=== PATIENT | male | born 1990 | race Hispanic/Latino ===

== ENCOUNTER 2019-07-17 20:50 | Inpatient (IN) | payer BC, MEDICAID ==
--- OUTSIDE RECORDS SUMMARY | 2019-07-17 20:52 | XMS REPORT | Summary of Care ---
:1990 Author Organization [facility] [place] [address] Care Team Providers Name Role Phone Raghav Ambrocio MD Unavailable Kevin Reyes MD Primary Care Provider Reason for Visit Reason Comments Post-op Follow-up Encounter Details Date Type Department Care Team Description 03/02/2019 Office Visit [facility] Fany Lange V, Post-op Follow- up Neurosurgery RF TECHNICIAN [address] [facility] 9th Floor, [address] 9th [address] [place] [address] [place], [place] [id number] Allergies Active Allergy Reactions Severity Noted Date Mannie Landers 03/17/2012 documented as of this encounter (statuses as of 03/02/2019) Medications Medication Sig Dispensed Refills Start Date End Date Status Sumatriptan-Naproxe Take by 0 Active n Sodium (TREXIMET) mouth. 85-500 MG TABS phenytoin TAKE 2 3 08/22/2016 Active (DILANTIN) 100 MG CAPSULES BY ER capsule MOUTH EVERY MORNING AND 3 CAPSULES EVERY EVENING levetiracetam Take 250 mg by 0 Active (KEPPRA) 250 MG mouth two tablet times daily. OXcarbazepine Take by 0 03/02/2019 Discontinued (TRILEPTAL OR) mouth. Reported on 09/10/2016 Ezogabine (POTIGA Take by 0 03/02/2019 Discontinued OR) mouth. Reported on 09/10/2016 DULoxetine HCl Take by 0 03/02/2019 Discontinued (CYMBALTA OR) mouth. Reported on 09/10/2016 hydrocodone-acetami Take 1 Tab by 0 03/02/2019 Discontinued nophen (NORCO) mouth every 4 5-325 mg tablet hours as needed. Reported on 09/10/2016 Tobramycin-Dexameth Apply to eye. 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 documented as of this encounter Last Filed Vital Signs Vital Sign Reading Time Taken Comments Blood Pressure 105/74 03/02/2019 2:10 PM CDT Pulse 67 03/02/2019 2:10 PM CDT Temperature - - Respiratory Rate 20 03/02/2019 2:10 PM CDT Oxygen Saturation - - Inhaled Oxygen Concentration - - Weight 84.4 kg (186 lb) 03/02/2019 2:10 PM CDT Height 167.6 cm (5' 6") 03/02/2019 2:10 PM CDT Body Mass Index 30.02 03/02/2019 2:10 PM CDT documented in this encounter Patient Instructions Patient InstructionsSeFany juan NP - 03/02/2019 2:00 PM CDTKeep wound clean and dry and call us for any concerns. documented in this encounter Progress Notes Fany Lange NP - 03/02/2019 2:00 PM CDT REASON FOR VISIT: Post operative visit. We had the pleasure of seeing Mr. Zazueta at the neurosurgery clinic. The patient is a 29 y.o. malewho underwent revision of the vagus nerve stimulator, replacement of pulse generator on 02/15/2019. Patient is recovering very nicely. His wound is healing nicely. CURRENT MEDICATIONS: Current Outpatient Medications Medication Sig Dispense Refill levetiracetam (KEPPRA) 250 MG tablet Take 250 mg by mouth two times daily. phenytoin (DILANTIN) 100 MG ER capsule TAKE 2 CAPSULES BY MOUTH EVERY MORNING AND 3 CAPSULES EVERY EVENING 3 Sumatriptan-Naproxen Sodium (TREXIMET) 85-500 MG TABS Take by mouth. No current facility-administered medications for this visit. PHYSICAL EXAM: Vitals: 03/02/19 1410 BP: 105/74 BP Location: right arm Patient Position: Sitting Cuff Size: large Pulse: 67 Resp: 20 Weight: 186 lb (84.4 kg) Height: 5' 6" (1.676 m) Patient is oriented to person, place and time. CN 2-12 are grossly intact bilaterally. MOTOR EXAM: UE Power Deltoids Triceps Biceps Supinator Pronator Wrist Extensor Wrist Flexor Right 5/5 5/5 5/5 5/5 5/5 5/5 5/5 Left 5/5 5/5 5/5 5/5 5/5 5/5 5/5 LE Power Hip Flexors Quadriceps Hamstrings Dorsiflexors Plantar Flexors EHL Right 5/5 5/5 5/5 5/5 5/5 5/5 Left 5/5 5/5 5/5 5/5 5/5 5/5 Sensory exam : Intact DTR: 2+ throughout. Gait: Steady. Incision: Healing nicely. No signs of infection noted. DIAGNOSIS: Encounter Diagnosis and Orders ICD-10-CM 1. 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 Abundio Zazueta is recovering nicely from the surgery. His incision site was cleaned, no signs of infection noted. Patient was advised to follow up with his neurologist, Dr. Ambrocio. Patient was asked to contact us if he has any questions or concerns. Follow up with us PRN. 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
--- OUTSIDE RECORDS SUMMARY | 2019-07-17 20:52 | XMS REPORT ---
:1990 Author Organization [facility] Address [address] [place] [address] [address] [place] [address] Care Team Providers Name Role Phone IVAN MARTINEZ Unavailable Unavailable Problems This patient has no known problems. Allergies, Adverse Reactions, Alerts This patient has no known allergies or adverse reactions. Medications This patient has no known medications. Results Test Description Test Time Test Comments Text Results Atomic Results Result Comments TISSUE EXAM 2019-02-27 10:44:00 Surgical Pathology Report Case: [id number] Authorizing Provider: Ivan Martinez MD Collected: 02/15/2019 0929 Ordering Location: [facility] Received: 02/15/2019 1059 SERVICES Pathologist: Migue Lassiter MD Specimen: Explant, Previous Battery NEUROSURGICAL HARDWARE, REMOVAL: - BATTERY (GROSS EXAMINATION ONLY)CG/pl Signing Pathologist Direct Phone Line: [phone] signed by Migue Lassiter MD on 02/27/2019 at 10:44 [id number] and postop diagnosis: non-intractable epilepsy without status epilepticus, unspecified epilepsy type Previous batteryReceived fresh labeled with the patient's name, accession number and "explant" is an Aspire HC battery measuring 5.1 x 5.1 x 0.6 cm. The specimen is inscribed with "model 105/S/N [id number] [employer]. [place], [place]". A gross photograph is taken. No sections are submitted - gross only. CG/pl URINALYSIS W/ MICROSCOPIC 2019-02-11 16:13:00 Test Item Value Reference Range Comments COLOR (BEAKER) (test ioot=814) Light Yellow CLARITY (BEAKER) (test aeof=119) Clear SPECIFIC GRAVITY UA (BEAKER) (test pvot=970) 1.005 1.001-1.035 PH UA (BEAKER) (test ocsi=183) 6.5 5.0-8.0 PROTEIN UA (BEAKER) (test esll=084) Negative Negative GLUCOSE UA (BEAKER) (test hwiv=966) Negative Negative KETONES UA (BEAKER) (test scpj=014) Negative Negative BILIRUBIN UA (BEAKER) (test vhwp=124) Negative Negative BLOOD UA (BEAKER) (test miah=493) Negative Negative NITRITE UA (BEAKER) (test gjco=047) Negative Negative LEUKOCYTE ESTERASE UA (BEAKER) (test hbae=319) Negative Negative UROBILINOGEN UA (BEAKER) (test wnor=840) 0.2 mg/dL 0.2-1.0 RBC UA (BEAKER) (test fetf=734) 0 /HPF WBC UA (BEAKER) (test hrue=048) < /HPF SOURCE(BEAKER) (test tukq=6869) Urine, Clean Catch [id number] 15:41:00 Test Item Value Reference Range Comments PARTIAL THROMBOPLASTIN TIME (BEAKER) (test 34.1 seconds 22.5-36.0 yatz=155) BASIC METABOLIC [id number] 15:40:00 Test Item Value Reference Range Comments SODIUM (BEAKER) (test 138 meq/L 136-145 smhj=394) POTASSIUM (BEAKER) (test 3.7 meq/L 3.5-5.1 wvue=061) CHLORIDE (BEAKER) (test 100 meq/L 98-107 bxyr=196) CO2 (BEAKER) (test 31 meq/L 22-29 swxy=852) BLOOD UREA NITROGEN 8 mg/dL 7-21 (BEAKER) (test enut=635) CREATININE (BEAKER) (test 0.83 mg/dL 0.57-1.25 kmdn=412) GLUCOSE RANDOM (BEAKER) 82 mg/dL 70-105 (test xksz=078) CALCIUM (BEAKER) (test 9.2 mg/dL 8.4-10.2 xsqv=574) EGFR (BEAKER) (test 110 mL/min/1.73 sq m ESTIMATED GFR IS NOT xkaa=2516) ACCURATE CREATININE CLEARANCE IN PREDICTING GLOMERULAR FILTRATION RATE. ESTIMATED GFR IS NOT APPLICABLE FOR DIALYSIS PATIENTS. PROTHROMBIN [id number] 15:40:00 Test Item Value Reference Range Comments PROTIME (BEAKER) (test cnlt=781) 12.5 seconds 11.9-14.2 INR (BEAKER) (test mnvh=867) 1.0 <=5.9 Effective 12/23/2018: PT Reference Range ChangeNew: 11.9-14.2 Previous: 11.7- 14.7RECOMMENDED COUMADIN/WARFARIN INR THERAPY RANGESSTANDARD DOSE: 2.0-3.0 Includes: PROPHYLAXIS for venous thrombosis, systemic embolization; TREATMENT for venous thrombosis and/or pulmonary embolus.HIGH RISK: Target INR is2.5-3.5 for patients wiht mechanical heart valves.CBC W/PLT COUNT & AUTO [id number] 15:25:00 Test Item Value Reference Range Comments WHITE BLOOD CELL COUNT (BEAKER) (test vywd=916) 8.8 K/ L 3.5-10.5 RED BLOOD CELL COUNT (BEAKER) (test sarv=721) 4.86 M/ L 4.63-6.08 HEMOGLOBIN (BEAKER) (test djlp=129) 15.0 GM/DL 13.7-17.5 HEMATOCRIT (BEAKER) (test dcfp=715) 43.2 % 40.1-51.0 MEAN CORPUSCULAR VOLUME (BEAKER) (test qlec=083) 88.9 fL 79.0-92.2 MEAN CORPUSCULAR HEMOGLOBIN (BEAKER) (test 30.9 pg 25.7-32.2 gdyu=025) MEAN CORPUSCULAR HEMOGLOBIN CONC (BEAKER) (test 34.7 GM/DL 32.3-36.5 kbju=313) RED CELL DISTRIBUTION WIDTH (BEAKER) (test 12.3 % 11.6-14.4 rrph=759) PLATELET COUNT (BEAKER) (test popv=087) 268 K/CU MM 150-450 MEAN PLATELET VOLUME (BEAKER) (test ivgi=712) 9.0 fL 9.4-12.4 NUCLEATED RED BLOOD CELLS (BEAKER) (test 0 /100 WBC 0-0 bduk=923) NEUTROPHILS RELATIVE PERCENT (BEAKER) (test 51 % nwsp=891) LYMPHOCYTES RELATIVE PERCENT (BEAKER) (test 39 % ahnx=786) MONOCYTES RELATIVE PERCENT (BEAKER) (test 7 % feim=084) EOSINOPHILS RELATIVE PERCENT (BEAKER) (test 2 % qzxa=628) BASOPHILS RELATIVE PERCENT (BEAKER) (test 1 % rkcx=160) NEUTROPHILS ABSOLUTE COUNT (BEAKER) (test 4.45 K/ L 1.78-5.38 udul=703) LYMPHOCYTES ABSOLUTE COUNT (BEAKER) (test 3.41 K/ L 1.32-3.57 mxdb=756) MONOCYTES ABSOLUTE COUNT (BEAKER) (test 0.65 K/ L 0.30-0.82 kell=887) EOSINOPHILS ABSOLUTE COUNT (BEAKER) (test 0.16 K/ L 0.04-0.54 lhme=051) BASOPHILS ABSOLUTE COUNT (BEAKER) (test 0.06 K/ L 0.01-0.08 gisj=704) IMMATURE GRANULOCYTES-RELATIVE PERCENT (BEAKER) 1 % 0-1 (test klxr=4104) TISSUE [id number] 14:52:00Surgical Pathology Report Case: [id number] Authorizing Provider: Ivan Martinez MD Ordering Provider: Ivan Martinez MD [facility] Collected: 10/31 0959 SERVICES Pathologist: Rangel Mejia MD Received: 10/31/2016 1031 Specimen: Explant, Explant Generator -- model 105 SN: [id number] SENIOR SPECIALIST, SITE NOT SPECIFIED, REMOVAL: - SENIOR SPECIALIST (GROSS DIAGNOSIS) Signing Pathologist Direct Phone Line: [phone] generatorReceived fresh labeled "explant", description "explant generator" is a 5.0 x 5.0 x 0.5 cm metallic medical sociologist. The specimen is for gross identification only. DB/ew
[2019-07-17] MEDS ORDERED: NA CHLORIDE 0.9% 1,000 ML ONE (21:21)
[2019-07-17 21:35] LABS: Basophils % 0.8 % (0-1.3); Hematocrit 46.8 % (39.6-49.0); Lymphocytes % 32.2 % (15.3-44.8); MPV 7.3 fL (7.6-11.3); RBC Red Blood Cell Count 5.12 M/uL (4.33-5.43)
[2019-07-17 21:37] LABS: Protime INR 1.04
[2019-07-17 22:48] LABS: ALT/SGPT 29 U/L (12-78); AST/SGOT 16 U/L (15-37); Albumin 4.6 g/dL (3.4-5.0); Alkaline Phosphatase 155 U/L (45-117); BUN Blood Urea Nitrogen 7 mg/dL (7-18); Bicarbonate 32 mmol/L (21-32); Bilirubin Direct < 0.1 mg/dL (0-0.2); Bilirubin Total 0.2 mg/dL (0.2-1.0); Glucose Level 104 mg/dL (74-106); Magnesium 2.1 mg/dL (1.8-2.4); NT PRO-BNP 12 pg/mL (<125); Phenytoin (Dilantin) Level 50.4 ug/mL (10.0-20.0); Potassium 3.7 mmol/L (3.5-5.1); Protein, Total 7.6 g/dL (6.4-8.2); Sodium Level 138 mmol/L (136-145); Troponin (Emerg Dept Use Only) < 0.02 ng/mL (0.0-0.045)
--- NOTE | 2019-07-17 23:19 | EDPHYS ---
Physician Documentation [facility] Name: Abundio Zazueta Age: 29 yrs Sex: Male : 1990 Arrival Date: 07/17/2019 Time: 20:51 Bed 14 Private MD: ED Physician Jose R Davis HPI: 07/17 22:04 This 29 yrs old Male presents to ER via Ambulatory with complaints of Weakness.jack 22:04 The patient presents to the emergency department with weakness of the difficult jack walking, the patient is off balance. Onset: The symptoms/episode began/occurred 2 week(s) ago. Context: occurred at an unknown location. Associated signs and symptoms: Pertinent positives: dizziness, headache, weakness. Severity of symptoms: At their worst the symptoms were mild moderate in the emergency department the symptoms are unchanged. Patient's baseline: Neuro: alert and fully oriented. Current symptoms: Currently, the patient is not experiencing any symptoms. The patient has experienced similar episodes in the past, a few times. Historical: - Allergies: 20:56 ambien; aj1 - Home Meds: 20:56 Dilantin 100 MG Oral 2 tabs in the morning and 3 tabs at night [Active]; Keppra 500 mg aj1 Oral tab 1 tab 2 times per day [Active]; pantoprazole 40 mg oral TbEC 1 tab once daily [Active]; - PMHx: 20:56 Hypertension; Seizures; aj1 - Immunization history:: Flu vaccine is up to date. - Social history:: Smoking status: Patient uses tobacco products, smokes one-half pack cigarettes per day. - Ebola Screening: : Patient denies travel to an Ebola-affected area in the 21 days before illness onset. - Family history:: not pertinent. ROS: 22:04 Constitutional: Negative for fever, chills, and weight loss, ENT: Negative for injury, jack pain, and discharge, Neck: Negative for injury, pain, and swelling, Cardiovascular: Negative for chest pain, palpitations, and edema, Respiratory: Negative for shortness of breath, cough, wheezing, and pleuritic chest pain, Abdomen/GI: Negative for abdominal pain, nausea, vomiting, diarrhea, and constipation, Back: Negative for injury and pain, : Negative for injury, bleeding, discharge, and swelling, MS/Extremity: Negative for injury and deformity, Skin: Negative for injury, rash, and discoloration, Psych: Negative for depression, anxiety, suicide ideation, homicidal ideation, and hallucinations, Allergy/Immunology: Negative for hives, rash, and allergies, Endocrine: Negative for neck swelling, polydipsia, polyuria, polyphagia, and marked weight changes, Hematologic/Lymphatic: Negative for swollen nodes, abnormal bleeding, and unusual bruising. 22:04 Eyes: Negative for acute changes. 22:04 Neuro: Positive for dizziness, gait disturbance, weakness. Exam: 22:04 Constitutional: This is a well developed, well nourished patient who is awake, alert, jack and in no acute distress. Head/Face: Normocephalic, atraumatic. Eyes: Pupils equal round and reactive to light, extra-ocular motions intact. Lids and lashes normal. Conjunctiva and sclera are non-icteric and not injected. Cornea within normal limits. Periorbital areas with no swelling, redness, or edema. ENT: Nares patent. No nasal discharge, no septal abnormalities noted. Tympanic membranes are normal and external auditory canals are clear. Oropharynx with no redness, swelling, or masses, exudates, or evidence of obstruction, uvula midline. Mucous membranes moist. Neck: Trachea midline, no thyromegaly or masses palpated, and no cervical lymphadenopathy. Supple, full range of motion without nuchal rigidity, or vertebral point tenderness. No Meningismus. Chest/axilla: Normal chest wall appearance and motion. Nontender with no deformity. No lesions are appreciated. Cardiovascular: Regular rate and rhythm with a normal S1 and S2. No gallops, murmurs, or rubs. Normal PMI, no JVD. No pulse deficits. Respiratory: Lungs have equal breath sounds bilaterally, clear to auscultation and percussion. No rales, rhonchi or wheezes noted. No increased work of breathing, no retractions or nasal flaring. Abdomen/GI: Soft, non-tender, with normal bowel sounds. No distension or tympany. No guarding or rebound. No evidence of tenderness throughout. Back: No spinal tenderness. No costovertebral tenderness. Full range of motion. Male : Normal genitalia with no discharge or lesions. MS/ Extremity: Pulses equal, no cyanosis. Neurovascular intact. Full, normal range of motion. Psych: Awake, alert, with orientation to person, place and time. Behavior, mood, and affect are within normal limits. 22:04 Neuro: Orientation: is normal, appropriate for stated age, no acute changes, Mentation: is normal, appropriate for stated age, no acute changes, Memory: is normal, Cerebellar function: is grossly normal, is grossly normal based on the patient's age, no acute changes, Motor: is normal, is grossly normal based on the patient's age, Sensation: is normal, no obvious gross deficits, appropriate no acute changes, Gait: not tested. Deep tendon reflexes are 2+ (normal) in the bilateral brachioradialis, bicep, tricep and patellar and Achilles tendons, seizure activity, is not displayed by the patient. Vital Signs: 20:56 BP 123 / 101; Pulse 68; Resp 18; Temp 97.4; Pulse Ox 100% on R/A; Weight 86.18 kg (R); aj1 Height 5 ft. 6 in. (167.64 cm) (R); Pain 0/10; 22:00 BP 144 / 110; Pulse 76; Resp 18; Pulse Ox 100% on R/A; rv 22:30 BP 119 / 91; Pulse 73; Resp 17; Pulse Ox 100% on R/A; rv 23:00 BP 119 / 101; Pulse 72; Resp 18; Pulse Ox 97% on R/A; rv 07/18 00:36 BP 119 / 89; Pulse 73; Resp 18; Pulse Ox 98% on R/A; rv 07/17 20:56 Body Mass Index 30.67 (86.18 kg, 167.64 cm) aj1 MDM: 07/17 20:57 Patient medically screened. [facility] 22:04 Data reviewed: vital signs, nurses notes, lab test result(s), EKG, radiologic studies, [facility] CT scan, plain films. 07/17 20:59 Order name: Basic Metabolic Panel; Complete Time: 23:01 [facility] 07/17 20:59 Order name: CBC with Diff; Complete Time: 22:09 [facility] 07/17 20:59 Order name: LFT's; Complete Time: 23:01 [facility] 07/17 20:59 Order name: Magnesium; Complete Time: 23:01 [facility] 07/17 20:59 Order name: NT PRO-BNP; Complete Time: 23:01 [facility] 07/17 20:59 Order name: PT-INR; Complete Time: 22:09 [facility] 07/17 20:59 Order name: Troponin (emerg Dept Use Only); Complete Time: 23:01 [facility] 07/17 20:59 Order name: XRAY Chest (1 view) [facility] 07/17 20:59 Order name: EKG; Complete Time: 21:00 [facility] 07/17 20:59 Order name: Cardiac monitoring; Complete Time: 21:21 [facility] 07/17 20:59 Order name: Dilantin; Complete Time: 23:01 [facility] 07/17 20:59 Order name: CT Head Brain wo Cont [facility] 07/17 23:09 Order name: Urine Dipstick--Ancillary (enter results) cm6 07/17 20:59 Order name: EKG - Nurse/Tech; Complete Time: 21:21 [facility] 07/17 20:59 Order name: IV Saline Lock; Complete Time: 21:21 [facility] 07/17 20:59 Order name: Labs collected and sent; Complete Time: 21:21 [facility] 07/17 20:59 Order name: O2 Per Protocol; Complete Time: : [facility] 07/17 20:59 Order name: O2 Sat Monitoring; Complete Time: 21:21 [facility] Administered Medications: 21:41 Drug: NS 0.9% 1000 ml Route: IV; Rate: 1 bolus; Site: right antecubital; rv 07/18 00:37 Follow up: IV Status: Completed infusion rv Disposition: 07/17/19 23:17 Hospitalization ordered by Salas Abdi for Observation. Preliminary diagnosis are Dizziness and giddiness, Ataxic gait, Nystagmus, Poisoning by hydantoin derivatives, accidental (unintentional). - Bed requested for Telemetry/MedSurg (observation). - Status is Observation. rv - Condition is Stable. - Problem is new. - Symptoms have improved. UTI on Admission? No Signatures: Dispatcher [employer] EDRosa Anguiano RN RN Lakshmi Covarrubias RN RN mw Anderson, Corey, MD MD cha Vicente, Ronaldo RN RN rv Corrections: (The following items were deleted from the chart) 00:25 07/17 23:17 Hospitalization Ordered by Salas Abdi MD for Observation. Preliminary mw diagnosis is Dizziness and giddiness; Ataxic gait; Nystagmus; Poisoning by hydantoin derivatives, accidental (unintentional). Bed requested for Telemetry/MedSurg (observation). Status is Observation. Condition is Stable. Problem is new. Symptoms have improved. UTI on Admission? No. jack 07/18 00:40 00:25 07/17/2019 23:17 Hospitalization Ordered by Salas Abdi MD for Observation. rv Preliminary diagnosis is Dizziness and giddiness; Ataxic gait; Nystagmus; Poisoning by hydantoin derivatives, accidental (unintentional). Bed requested for Telemetry/MedSurg (observation). Status is Observation. Condition is Stable. Problem is new. Symptoms have improved. UTI on Admission? No. mw
--- NOTE | 2019-07-17 23:19 | ER ---
Nurse's Notes [facility] Name: Abundio Zazueta Age: 29 yrs Sex: Male : 1990 Arrival Date: 07/17/2019 Time: 20:51 Bed 14 Private MD: Diagnosis: Dizziness and giddiness;Ataxic gait;Nystagmus;Poisoning by hydantoin derivatives, accidental (unintentional) Presentation: 07/17 20:53 Presenting complaint: 3 weeks ago he started having blurred vision, last week he aj1 thought he had a sinus infection, but he started to have an unsteady gait and now he can't even stand up and walk. He made an appointment with Dr. Ambrocio but he can't get in until next month. Denies pain. Transition of care: patient was not received from another setting of care. Onset of symptoms was 2018. Risk Assessment: Do you want to hurt yourself or someone else? Patient reports no desire to harm self or others. Initial Sepsis Screen: Does the patient meet any 2 criteria? No. Patient's initial sepsis screen is negative. Does the patient have a suspected source of infection? No. Patient's initial sepsis screen is negative. Care prior to arrival: None. 20:53 Method Of Arrival: Ambulatory aj1 20:53 Acuity: CHADD 3 aj1 Triage Assessment: 20:56 General: Appears in no apparent distress. comfortable, Behavior is calm, cooperative, aj1 appropriate for age. Pain: Denies pain. Neuro: Level of Consciousness is awake, alert, obeys commands, Reports blurred vision weakness unsteady gait. Historical: - Allergies: 20:56 ambien; aj1 - Home Meds: 20:56 Dilantin 100 MG Oral 2 tabs in the morning and 3 tabs at night [Active]; Keppra 500 mg aj1 Oral tab 1 tab 2 times per day [Active]; pantoprazole 40 mg oral TbEC 1 tab once daily [Active]; - PMHx: 20:56 Hypertension; Seizures; aj1 - Immunization history:: Flu vaccine is up to date. - Social history:: Smoking status: Patient uses tobacco products, smokes one-half pack cigarettes per day. - Ebola Screening: : Patient denies travel to an Ebola-affected area in the 21 days before illness onset. - Family history:: not pertinent. Screenin:10 Abuse screen: Denies threats or abuse. Denies injuries from another. Nutritional rv screening: No deficits noted. Tuberculosis screening: No symptoms or risk factors identified. Fall Risk None identified. Assessment: 21:30 General: Appears in no apparent distress. comfortable, Behavior is calm, cooperative. rv 21:30 Pain: Denies pain. Neuro: Level of Consciousness is awake, alert, obeys commands, rv Oriented to person, place, time, situation. Cardiovascular: Patient's skin is warm and dry. Respiratory: Airway is patent. Derm: Skin is intact. Musculoskeletal: Reports weakness in GENERALIZED. Vital Signs: 20:56 BP 123 / 101; Pulse 68; Resp 18; Temp 97.4; Pulse Ox 100% on R/A; Weight 86.18 kg (R); aj1 Height 5 ft. 6 in. (167.64 cm) (R); Pain 0/10; 22:00 BP 144 / 110; Pulse 76; Resp 18; Pulse Ox 100% on R/A; rv 22:30 BP 119 / 91; Pulse 73; Resp 17; Pulse Ox 100% on R/A; rv 23:00 BP 119 / 101; Pulse 72; Resp 18; Pulse Ox 97% on R/A; rv 07/18 00:36 BP 119 / 89; Pulse 73; Resp 18; Pulse Ox 98% on R/A; rv 12 20:56 Body Mass Index 30.67 (86.18 kg, 167.64 cm) aj1 ED Course: 07/17 20:51 Patient arrived in ED. cf2 20:54 Triage completed. aj1 20:56 Arm band placed on Patient placed in an exam room. aj1 20:57 Jose R Davis MD is Attending Physician. jack 21:00 Manuelito Gallo RN is Primary Nurse. rv 21:22 Inserted saline lock: 22 gauge in right antecubital area, using aseptic technique. rv Blood collected. 21:30 Patient has correct armband on for positive identification. rv 21:30 Pulse ox on. NIBP on. rv 21:39 CT Head Brain wo Cont In Process Unspecified. EDMS 22:31 XRAY Chest (1 view) In Process Unspecified. EDMS 23:09 Salas Abdi MD is Hospitalizing Provider. jack 23:13 No provider procedures requiring assistance completed. rv 07/18 00:37 Patient admitted, IV remains in place. rv Administered Medications: 07/17 21:41 Drug: NS 0.9% 1000 ml Route: IV; Rate: 1 bolus; Site: right antecubital; rv 07/18 00:37 Follow up: IV Status: Completed infusion rv Outcome: 07/17 23:17 Decision to Hospitalize by Provider. [facility] 07/18 00:37 Admitted to Med/surg accompanied by tech, via wheelchair, room 212, with chart, Report rv called to ALKA SPENCER Condition: good Instructed on the need for admit. 00:40 Patient left the ED. rv Signatures: Dispatcher [employer] EDRsoa Anguiano RN RN Jose R Yan MD MD cha Vicente, Ronaldo, RN RN Phani Segovia 2
[2019-07-18] MEDS ORDERED: MORPHINE 2 MG/ML SYR IV PRN (00:17)
[2019-07-18] MEDS ORDERED: ONDANSETRON 4 MG/2 ML VIAL IV PRN (00:17)
[2019-07-18 00:26] LABS: Urine Blood NEGATIVE (NEG); Urine Glucose NEGATIVE (NEG); Urine Protein NEGATIVE (NEG); Urine Specific Gravity 1.015 (1.005-1.030)
[2019-07-18] MEDS: NA CHLORIDE 0.9% 1,000 ML IV SCH ×3 (01:19→18:11)
[2019-07-18 01:26] VITALS: BMI 30.5
[2019-07-18 02:05] VITALS: O2SAT 99
[2019-07-18] MEDS ORDERED: NA CHLORIDE 0.9% 1,000 ML IV SCH (02:30)
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
[2019-07-18 06:07] LABS: Albumin 3.8 g/dL (3.4-5.0); Bilirubin Direct 0.1 mg/dL (0-0.2); Bilirubin Total 0.4 mg/dL (0.2-1.0); Protein, Total 6.5 g/dL (6.4-8.2)
[2019-07-18] MEDS ORDERED: LORAZEPAM 1 MG TABLET PO PRN (07:16)
[2019-07-18] MEDS ORDERED: PANTOPRAZOLE 40MG TABLET PO SCH (07:30)
[2019-07-18] MEDS ORDERED: levETIRAcetam 500 MG TAB PO SCH ×2 (09:00→21:00)
[2019-07-18] MEDS ORDERED: LEVETIRACETAM PO SCH ×2 (09:00→21:00)
[2019-07-18] MEDS ORDERED: HOME MED 1 EA UNK (Pantoprazole Sodium [Protonix] 40 MG) PO SCH (09:00)
--- NOTE | 2019-07-18 09:30 | RAD REPORT ---
EXAM DESCRIPTION: RAD - Chest Single View - 07/17/2019 10:31 pm CLINICAL HISTORY: COUGH Chest pain. COMPARISON: Chest Pa And Lat (2 Views) dated 08/21/2017; Chest Pa And Lat (2 Views) dated 01/08/2017; Chest Pa And Lat (2 Views) dated 11/27/2015; CHEST SINGLE VIEW dated 04/28/2015 FINDINGS: Portable technique limits examination quality. The lungs are grossly clear. The heart is normal in size. No displaced fractures.Left-sided stimulato r device is present. IMPRESSION: No acute intrathoracic process suspected.
--- NOTE | 2019-07-18 10:34 | P.PN ---
Subjective Date of Service: 07/18/19 Chief Complaint: Elevated Dilantin level Subjective: No new changes Patient states his dizziness/vertigo is better. He desires to go home. Dilantin level is coming down slowly. Physical Examination - Vital Signs Temperature: 97.7 F Blood Pressure: 112/70 Pulse: 69 Respirations: 17 Pulse Ox (%): 99 - Physical Exam General: Alert, In no apparent distress HEENT: Mucous membr. moist/pink Neck: Supple, JVD not distended Respiratory: Clear to auscultation bilaterally, Normal air movement Cardiovascular: No edema Gastrointestinal: Soft and benign, No tenderness Neurological: Normal speech, Normal strength at 5/5 x4 extr - Studies Laboratory Data (last 24 hrs) 07/17/19 21:00: PT 12.3, INR 1.04 07/17/19 21:00: WBC 9.4, Hgb 16.2, Hct 46.8, Plt Count 258 07/17/19 21:00: Sodium 138, Potassium 3.7, BUN 7, Creatinine 0.94, Glucose 104, Magnesium 2.1, Total Bilirubin 0.2, AST 16, ALT 29, Alkaline Phosphatase 155 H Assessment And Plan - Current Problems (Diagnosis) (1) Elevated phenytoin level Current Visit: Yes Status: Acute (2) Status post VNS (vagus nerve stimulator) placement Current Visit: Yes Status: Chronic (3) Temporal lobe epilepsy Current Visit: Yes Status: Chronic - Plan Continue Keppra Hold Dilantin Monitor Dilantin levels Neuro checks Neurology consult.
[2019-07-18] MEDS ORDERED: LEVETIRACETAM 250 MG PO SCH (21:00)
[2019-07-18] MEDS ORDERED: PHENYTOIN ER 100 MG CAP PO SCH (21:00)
[2019-07-19] MEDS: NA CHLORIDE 0.9% 1,000 ML IV SCH ×2 (01:00→08:04)
[2019-07-19] MEDS ORDERED: PANTOPRAZOLE 40MG TABLET PO SCH (07:30)
[2019-07-19] MEDS ORDERED: LEVETIRACETAM 250 MG PO SCH (09:00)
[2019-07-19 11:13] VITALS: TEMP 97.5
--- NOTE | 2019-07-19 12:04 | RAD REPORT ---
EXAM DESCRIPTION: Head Brain Wo Cont CLINICAL HISTORY: 29 years Male Dizziness;Headache COMPARISON: May 06, 2018. TECHNIQUE: Images were obtained in axial, sagittal, and coronal planes. This exam was performed according to our departmental dose-optimization program which includes use of Automated Exposure Control, adjustment of the mA and/or kV according to patient size and/or use of i terative reconstruction technique. FINDINGS: Findings consistent with prior right temporal craniotomy again noted. Postsurgical and enc ephalomalacia right temporal lobe unchanged. No ventricular dilatation. No new abnormal areas of increased or decreased attenuation present. No evidence for skull fracture. Unremarkable paranasal sinuses. Symmetric aeration mastoid air cells bilaterally. IMPRESSION: Prior right temporal craniotomy with postsurgical changes and encephalomalacia right tem poral lobe. Appearance unchanged when correlated with the prior study. No acute intracranial abnormality. No evidence for hemorrhage, mass lesion, or large acute infarction . Electronically signed by: Polina Go MD 07/17/2019 9:53 PM WHEEL LACER AND TRUER Due to temporary technical issues with the PACS/Fluency reporting system, reports are being signed by the in house radiologist as a courtesy to ensure prompt reporting. The interpreting radiologist is f ully responsible for the content of the report.
--- NOTE | 2019-07-19 12:22 | P.DS ---
Admission Date: 07/19/19 Discharge Date: 07/19/19 Disposition: ROUTINE DISCHARGE Discharge Condition: FAIR Reason for Admission: Elevated Dilantin level - Problems (1) Elevated phenytoin level Current Visit: Yes Status: Acute (2) Status post VNS (vagus nerve stimulator) placement Current Visit: Yes Status: Chronic (3) Temporal lobe epilepsy Current Visit: Yes Status: Chronic Brief History of Present Illness: 29-year-old gentleman with a history of epilepsy on Keppra and Dilantin presented to the ED with a complaint of progressive weakness, unsteady gait to the point he was not able to walk. He was also complaining of blurry vision. His Dilantin level in the ED was noted to be severely elevated. The patient was admitted for Dilantin toxicity. Hospital Course: His Dilantin was held and continued on oral Keppra. His symptoms improved, patient was able to walk unassisted. Today he denies any dizziness or vertigo or blurry vision. His Dilantin level is still elevated at 41. Patient requested to go home today. This case was discussed with Dr. Ambrocio we recommended that patient should not take his Dilantin for the next 3 days and resume at a 100 mg dose lower per day which brings his Dilantin down to 200 mg in the morning and 200 mg at bed time. He also recommended to follow up with him within 2 weeks and to check his Dilantin within 1 week. Patient has decided to call Dr. Ambrocio's office for an order to check his Dilantin level next week. He is discharged today per his request. Vital Signs/Physical Exam: Temp Pulse Resp BP Pulse Ox 97.5 F 77 18 119/84 97 07/19/19 08:00 07/19/19 08:00 07/19/19 08:00 07/19/19 08:00 07/19/19 08:00 General: Alert, In no apparent distress, Oriented x3 HEENT: Mucous membr. moist/pink Neck: Supple, JVD not distended Respiratory: Clear to auscultation bilaterally, Normal air movement Cardiovascular: No edema, Regular rate/rhythm, Normal S1 S2 Gastrointestinal: Normal bowel sounds, Soft and benign, No tenderness Musculoskeletal: No swelling Integumentary: No rashes Neurological: Normal speech, Normal strength at 5/5 x4 extr Laboratory Data at Discharge: WBC 9.4 K/uL (4.3-10.9) 07/17/19 21:00 Hgb 16.2 g/dL (13.6-17.9) 07/17/19 21:00 Hct 46.8 % (39.6-49.0) 07/17/19 21:00 Plt Count 258 K/uL (152-406) 07/17/19 21:00 PT 12.3 SECONDS (9.5-12.5) 07/17/19 21:00 INR 1.04 07/17/19 21:00 Sodium 138 mmol/L (136-145) 07/17/19 21:00 Potassium 3.7 mmol/L (3.5-5.1) 07/17/19 21:00 BUN 7 mg/dL (7-18) 07/17/19 21:00 Creatinine 0.94 mg/dL (0.55-1.3) 07/17/19 21:00 Glucose 104 mg/dL (74-106) 07/17/19 21:00 Magnesium 2.1 mg/dL (1.8-2.4) 07/17/19 21:00 Total Bilirubin 0.4 mg/dL (0.2-1.0) 07/18/19 05:40 AST 17 U/L (15-37) 07/18/19 05:40 ALT 23 U/L (12-78) 07/18/19 05:40 Alkaline Phosphatase 133 U/L (45-117) H 07/18/19 05:40 Home Medications: Pantoprazole Sodium [Protonix] 40 mg PO DAILY 04/20/13 LORazepam [Ativan*] 1 mg PO Q4HP PRN 04/29/15 Levetiracetam [Keppra] 2 tab PO BEDTIME 07/18/19 Levetiracetam [Keppra] 2 tab PO DAILY 07/18/19 PHENYTOIN ER Cap [Dilantin ER Cap*] 2 cap PO BEDTIME #30 cap 07/19/19 PHENYTOIN ER Cap [Dilantin ER Cap] 200 mg PO DAILY #30 cap 07/19/19 New Medications: PHENYTOIN ER Cap [Dilantin ER Cap*] 2 cap PO BEDTIME #30 cap PHENYTOIN ER Cap [Dilantin ER Cap] 200 mg PO DAILY #30 cap Diet: Regular Activity: Ad linda Followup: Raghav Ambrocio MD [ASSOCIATE-ACTIVE - CAN ADMIT] - 1-2 Weeks Time spent managing pt's care (in minutes): 35
[2019-07-19 13:09] VITALS: BP 129/86
--- NOTE | 2019-07-19 20:49 | EKG ---
Test Date: 2019-07-17 Test Time: 21:44:27 Electrical Appliance Preparer: LMT MEASUREMENT RESULTS: Intervals: Rate: 72 NM: 182 QRSD: 90 QT: 392 QTc: 429 [place]: P: 46 NM: 182 QRS: -26 T: 41 INTERPRETIVE STATEMENTS: Normal sinus rhythm Normal ECG Compared to ECG 11/27/2015 11:15:32 No significant changes Electronically Signed On 07-19-19 20:46:58 NEWS PRODUCTION SUPERVISOR by Darius Villalba
== END 2019-07-19 13:03 | disposition home or self-care (01) | DRG 948 ==
LOC: ER 20:50 → ERHOLD 07-18 00:16 → 2ND 07-18 00:43 → OBSVTOIN 07-19 08:11
PROVIDERS: ADMIT Hospitalist; ATTEND Internal Medicine
DX: R53.1 Weakness (principal); G40.802 Other epilepsy, not intractable, without status epilepticus; T42.0X5A Adverse effect of hydantoin derivatives, initial encounter; Z96.9 Presence of functional implant, unspecified
CPT/HCPCS: 36415; 70450; 71045; 80048; 80076; 80185; 81003; 83735; 83880; 84484; 85025; 85610; 93005; 96360; 96361; 99285; G0378; J7030